=== PATIENT | female | born 1945 | race Caucasian/White ===

== ENCOUNTER 2019-08-31 08:40 | Outpatient (CLI) | payer OTHER, SELFPAY ==
[2019-08-31 09:23] LABS: Cholesterol 216 mg/dL (0-200); HDL Direct 47 mg/dL; Triglycerides 95 mg/dL (<150)
[2019-08-31 09:28] LABS: Blood Urea Nitrogen 24 mg/dL (7-17); Calcium 9.2 mg/dL (8.4-10.2); Carbon Dioxide 27 mmol/L (22-30); Chloride 106 mmol/L (98-107); Estimated Glomerular Filt Rate > 60; Glucose 107 mg/dL (65-105); Potassium 4.3 mmol/L (3.4-5.0); Sodium 140 mmol/L (137-145)
[2019-08-31 09:35] LABS: LDL Cholesterol Direct 129 mg/dL
[2019-08-31 10:54] LABS: Vitamin D 25 Hydroxy 28.6 ng/mL
== END 2019-08-31 08:41 | disposition home or self-care (01) ==
PROVIDERS: PCP Internal Medicine; Visit Provider Internal Medicine
DX: E55.9 Vitamin D deficiency, unspecified (principal); I10 Essential (primary) hypertension; E78.5 Hyperlipidemia, unspecified
CPT/HCPCS: 36415; 80048; 80061; 82306

== ENCOUNTER 2019-10-27 14:17 | Outpatient (CLI) | payer OTHER, SELFPAY ==
--- NOTE | ~2019-10-27 | US_ITS ---
EXAMINATION: US arterial ankle brachial ind EXAM DATE: 10/27/2019 15:34 INDICATION: Peripheral vascular disease. TECHNIQUE: Segmental pressures and plethysmographic and Doppler waveforms of the brachial and lower e xtremity arteries were obtained. There is no prior study for comparison. FINDINGS: Right and left brachial artery pressures of 140 mm Hg and 146 mm Hg, respectively, are concordant (no rmal difference <= 30 mmHg). RIGHT LEG: The ankle-brachial index (POLI) is 1.15 (normal >= 0.9-1). The great toe-brachial index (TBI) is 0.91 (normal >= 0.65). The lower extremity ratios, segmental pressure gradients as follows; Dorsalis pedis: 1.15 (168 mmHg). Posterior tibial: 1.03 (150 mmHg). (Normal gradients <= 20-30 mmHg between adjacent levels on the same leg or the same levels on the two legs). Arterial waveforms are biphasic. LEFT LEG: The ankle-brachial index (POLI) is 1.14 (normal >= 0.9-1). The great toe-brachial index (TBI) is 0.95 (normal >= 0.65). The lower extremity ratios, segmental pressure gradients as follows; Dorsalis pedis: 1.14 (167 mmHg). Posterior tibial: 1.09 (159 mmHg). (Normal gradients <= 20-30 mmHg between adjacent levels on the same leg or the same levels on the two legs). Arterial waveforms are biphasic. IMPRESSION: 1. Right ankle-brachial index 1.15. 2. Left ankle-brachial index 1.14. 3. Segmental pressures as above. Reviewed, dictated and finalized at location A.
== END 2019-10-27 14:18 | disposition home or self-care (01) ==
LOC: ANHIMG 14:18
PROVIDERS: PCP Internal Medicine; Visit Provider Nurse Practitioner
DX: I73.9 Peripheral vascular disease, unspecified (principal)
CPT/HCPCS: 93922

== ENCOUNTER 2019-10-28 12:16 | Outpatient (CLI) | payer OTHER, SELFPAY ==
--- NOTE | ~2019-10-28 | XR_ITS ---
. EXAMINATION: XR lg joint inject/asp w image DATE: 10/28/2019 13:28 INDICATION: Right hip pain TECHNIQUE: A time-out was performed to verify the patient's name, date of , and procedure to b e performed. The procedure including the risks, benefits, and alternatives was discussed with the pat ient. Risks discussed included bleeding and infection. The patient understood the risks and agreed to proceed. The skin overlying the right hip joint was prepped and draped in usual sterile fashion. A nesthetic was administered with 1% lidocaine subcutaneously. A 22 G needle was advanced under fluoro scopic guidance into the joint. Injection of 0.6 mL of Omnipaque 240 confirmed intra-articular posit ion of the needle. Subsequently, injectate consisting of 4.5 mm of a 2:1 mixture of 0.25% Sensorcain e: 10 mg/mL Kenalog for a total dosage of 15 mg Kenalog was instilled. Washout of contrast was seen c onfirming intra-articular administration. The needle was removed and the entry site was cleaned and d ressed. There were no immediate complications. Fluoroscopy exposure time was 0.1 minutes. The total number of images was 2. FINDINGS: Real-time fluoroscopy demonstrates the needle in the right hip joint. Patient's pain prior to procedure:08/27. Patient's pain following the procedure: 06/27. IMPRESSION: 1. Right hip joint injection of local anesthetic and steroid with decrease in the patient's presentin g pain. Reviewed, dictated and finalized at location A. IMPRESSION: 1. Right hip joint injection of local anesthetic and steroid with decrease in t he patient's presenting pain.
== END 2019-10-28 12:17 | disposition home or self-care (01) ==
PROVIDERS: PCP Internal Medicine; Visit Provider Orthopaedic Surgery
DX: M25.559 Pain in unspecified hip (principal)
CPT/HCPCS: 20610; 77002; J3301; Q9966

== ENCOUNTER 2019-11-11 14:58 | Outpatient (CLI) | payer OTHER, SELFPAY ==
--- NOTE | ~2019-11-11 | US_ITS ---
EXAMINATION: US venous doppler LE RT EXAM DATE: 11/11/2019 15:52 INDICATION: Right leg pain. TECHNIQUE: Multiple grayscale, color flow and Doppler images of the right lower extremity deep venous system were obtained and reviewed. There is no prior study for comparison. FINDINGS: The right common femoral, femoral and profunda veins demonstrate normal color flow, respira tory variation, augmentation and compressibility. Compressibility, color flow confirmed within the r ight popliteal, posterior tibial, peroneal, and greater saphenous veins. IMPRESSION: 1. No right lower extremity deep venous thrombosis. Reviewed, dictated and finalized at location B.
== END 2019-11-11 14:59 | disposition home or self-care (01) ==
PROVIDERS: PCP Internal Medicine; Visit Provider Nurse Practitioner
DX: M79.661 Pain in right lower leg (principal)
CPT/HCPCS: 93971

== ENCOUNTER 2020-08-18 08:51 | Outpatient (CLI) | payer OTHER, SELFPAY ==
[2020-08-18 10:00] LABS: Alanine Aminotransferase 16 U/L (4-35); Albumin Level 4.3 g/dL (3.5-5.1); Alkaline Phosphatase 94 U/L (38-126); Anion Gap 9 mmol/L (8-16); Aspartate Amino Transferase 26 U/L (14-36); Bilirubin,Total 0.3 mg/dL (0.2-1.3); Blood Urea Nitrogen 21 mg/dL (7-17); Calcium 9.6 mg/dL (8.4-10.2); Carbon Dioxide 26 mmol/L (22-30); Chloride 109 mmol/L (98-107); Cholesterol 222 mg/dL (0-200); Estimated Glomerular Filt Rate > 60; Glucose 102 mg/dL (65-105); HDL Direct 57 mg/dL; Potassium 4.5 mmol/L (3.4-5.0); Sodium 144 mmol/L (137-145); Triglycerides 100 mg/dL (<150)
[2020-08-18 10:05] LABS: Hemoglobin A1C 5.8 % (<5.7)
[2020-08-18 10:11] LABS: LDL Cholesterol Direct 117 mg/dL
[2020-08-18 10:37] LABS: Vitamin D 25 Hydroxy 36.8 ng/mL
== END 2020-08-18 08:52 | disposition home or self-care (01) ==
PROVIDERS: PCP Internal Medicine; Visit Provider Nurse Practitioner
DX: E78.5 Hyperlipidemia, unspecified (principal); R73.02 Impaired glucose tolerance (oral); E55.9 Vitamin D deficiency, unspecified
CPT/HCPCS: 36415; 80053; 80061; 82306; 83036

== ENCOUNTER 2020-12-12 10:50 | Outpatient (RCR) | payer OTHER, SELFPAY ==
--- NOTE | 2020-12-12 11:27 | PTOPEVAL ---
PHYSICAL THERAPY EVALUATION AND DISCHARGE Thank you for referring Nallely Jensen to [facility].? Nallely participated in gait training with a straight cane. No further care plan needed. Please review, sign, date and return this plan of care SHON. I agree with and certify that the following plan of care is medically necessary. Referring Physician Date Attending Provider: Oswald Doherty MD Evaluation Problem Diagnosis gait assessment with cane Subjective Information states she is going to be Query Text:As Reported By Patient/ having hip surgery on the Family right, hip replacement yet to be scheduled. Dr. Doherty would like her to be trained in using a cane appropriately. Self Report Pain Assessment Right Hip(s) Reported Pain Level 3 Pain Frequency Chronic Pain Score Pain Score 3: Self Report Interventions Used Interventions Used By Clinicians Walking Gait Assessment Gait Assessment Ambulation Assistive Devices Cane Ambulation Ability Independent Additional Ambulation Comments states that she feels like she can walk sohrt distances but avoids long distances. States that when she goes to the store she leans on the cart to assist. Gait Pattern Assessment Gait Pattern Antalgic Gait Other Gait Observations decreased hip extension in gait - patient notes that there is a pulling in the front of the hip when walking; Rehab Teaching Rehab Teaching Teaching Topic Rehab Teaching Topic Components Home Program,Transfer/Mobility Training As Pertains To Body Mechanics,Safety, Technique Recipient Patient Learning Preferences Demonstration,Discussion Barriers to Learning None Readiness to Learn Excellent Response Returns Demonstration, Verbalizes Understanding Method Demonstration,Discussion,One- On-One Instruction Additional Rehab Teaching Comments gait training with cane PT Clinical Summary Nallely is a 75 yo female scheduled to have a total hip arthroplasty in the coming weeks. She required education/ training for using a cane to assist with mobility and
== END 2020-12-12 15:37 | disposition home or self-care (01) ==
LOC: ANHPT 10:50
PROVIDERS: PCP Internal Medicine; Visit Provider Orthopaedic Surgery
DX: M16.11 Unilateral primary osteoarthritis, right hip (principal)
CPT/HCPCS: 97161

== ENCOUNTER 2021-01-17 11:59 | Outpatient (CLI) | payer OTHER, SELFPAY ==
[2021-01-17 13:19] LABS: Basophils Absolute Auto 0.1 K/mm3 (0.0-0.1); Eosinophils Absolute Auto 0.1 K/mm3 (0-0.3); Eosinophils Percent Auto 2.2 % (0-4.4); Hematocrit 43.5 % (37.0-47.0); Immature Granulocyte Absolute 0.01 K/mm3 (0.00-0.031); Immature Granulocyte Percent A 0.2 % (0-0.5); Lymphocytes Absolute Auto 1.44 K/mm3 (0.9-3.2); Lymphocytes Percent Auto 24.9 % (18.3-44.2); Mean Corpuscular HGB Conc 32.2 g/dl (32-36); Mean Corpuscular Hemoglobin 28.7 pg (26-34); Mean Corpuscular Volume 89.1 fl (80-100); Monocytes Absolute Auto 0.4 K/mm3 (0.1-0.6); Monocytes Percent Auto 7.6 % (2.6-8.5); Neutrophils Absolute Auto 3.7 K/mm3 (1.3-6.7); Neutrophils Percent Auto 64.1 % (45.5-73.1); Platelet Count Result 295 k/mm3 (150-375); Red Blood Count 4.88 M/mm3 (4.2-5.4); White Blood Count 5.8 K/mm3 (4.5-10.0)
[2021-01-17 13:27] LABS: Hemoglobin A1C 5.4 % (<5.7)
[2021-01-17 13:28] LABS: Urine Cotinine NEGATIVE
[2021-01-17 13:32] LABS: Albumin Level 4.9 g/dL (3.5-5.1); Anion Gap 7 mmol/L (8-16); Blood Urea Nitrogen 19 mg/dL (7-17); Calcium 10.9 mg/dL (8.4-10.2); Carbon Dioxide 31 mmol/L (22-30); Chloride 99 mmol/L (98-107); Estimated Glomerular Filt Rate > 60; Glucose 106 mg/dL (65-110); Sodium 137 mmol/L (137-145)
== END 2021-01-17 12:00 | disposition home or self-care (01) ==
LOC: ANHSURGERY 12:02
PROVIDERS: PCP Internal Medicine; Visit Provider Orthopaedic Surgery
DX: Z01.812 Encounter for preprocedural laboratory examination (principal); M16.11 Unilateral primary osteoarthritis, right hip; Z51.81 Encounter for therapeutic drug level monitoring; Z79.899 Other long term (current) drug therapy
CPT/HCPCS: 80048; 80307; 82040; 83036; 85025; 86850; 86900; 86901; 87070; 87147; 87181; 87186

== ENCOUNTER 2021-01-30 02:21 | Day surgery (SDC) | payer OTHER, SELFPAY ==
[2021-01-17 12:16] VITALS: BP 171/79; RESP 16; TEMP 36.6; O2SAT 100; BMI 28.0
--- NOTE | 2021-01-17 12:30 | PC.NURSE ---
Report to the Outpatient Waiting Room, entrance under the green pavilion located off [facility], at time __6:00AM on date __01/30/21____. OR Time: __7:30AM . - You and your visitor will be asked a series of questions to screen for COVID 19 for your protection. - A mask is required within the hospital. - Only one visitor is allowed at this time. Patient visitors will be guided where to wait when not with patient. Preoperative COVID Testing Requirements: No COVID Test needed if: (proof is required; if not received patient will have Rapid Test prior to entry) - Patient has received COVID Vaccine at least 14 days prior to procedure date or - Patient has positive COVID test result within last 90 days of surgery date. COVID Test needed if above criteria is not met If not COVID vaccinated a COVID test must be conducted within 72 hours of surgery and patient is asked to isolate self from time of testing until procedure. You will go to the [facility] for your COVID testing. The [facility] site is located at the corner of [address] [facility]. You will only be called if COVID results are positive and your surgeon may reschedule your elective surgery date. Patients may have clear liquids (water, carbonated beverages, clear teas, apple juice) until 3 hours prior to surgery with a maximum of 20 ounces. - No food from midnight until time of surgery - Infants may have breast milk until 4 hours before surgery, infant formula 6 hours prior to surgery. - Children will be allowed to drink immediately following surgery. If applicable, please bring a bottle or sippy cup to assist with drinking. Juice, water, soda, and popsicles are readily available. For infants on formula, please bring formula the day of surgery. Pacifiers are allowed. Take the following medications with a SIP of water the morning of surgery: ____NONE Medications to discontinue per physician HOLD ALL VITAMINS/SUPPLEMENTS 3 DAYS PRE-OP, OK TO CONTINUE ASPIRIN 81 MG Date to take last dose 01/26/21 Please no make-up, nail mauritian, hairspray, perfume, deodorant, or body powder the day of surgery. No jewelry (including any body piercings) or valuables the day of surgery, leave them at home. Please take a shower or bath the night before, or the morning of, surgery with an antibacterial soap. Wear comfortable, loose fitting clothing. Children are encouraged to wear pajamas. - Jewelry must be removed prior to entering the operating room. Rings and piercings that are not removed may be cut off. - The hospital will not accept responsibility for valuables. - Please leave all valuables, including medications, at home the day of surgery. If you are going home after surgery, a licensed cdl a driver must drive you home. - NO public transportation without another adult. - We recommend that an adult stay with you for 24 hours following discharge. - We also recommend that you do not drive, make important decision, drink alcoholic beverages, or take any drugs that were not prescribed by your health care provider for at least 24 hours after your discharge time. For Pediatric surgeries, we recommend two adults accompany the child home (only one inside the building at this time). Follow any additional instructions given to you from your surgeon. Telephone instructions given to ___PATIENT and asked if any additional questions and then verbalized understanding. Patient advised to call surgeon office or pre surgery nurse liaison [phone] if any additional questions.
--- NOTE | 2021-01-25 12:34 | PM.IMHP ---
H&P: HPI History of Present Illness Date/Time: 01/25/21 12:34 75-year-old female patient of Dr. Narayanan who presents today for a right anterior total hip arthroplasty. She has been having pain in this hip for approximately 3 years. Progressively worsening. Most the pain is in the groin and anterior lateral hip. She did have a fluoroscopic guided injection in the hip about a year ago which had mild improvement of her symptoms. She avoids anti-inflammatory medications because she is afraid of having kidney issues. She does not have a diagnosis of chronic kidney disease. She does use Tylenol. 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 Chief Complaint: Right hip DJD Review of Systems Review of Systems: All systems reviewed & are unremarkable except as noted in HPI and below PMFSH Past Medical History Medical History Pain in right lower leg Surgical History Surgical History History of bilateral mastectomy History of hysterectomy Family History Family History Father Hypertension Cerebrovascular accident Colon polyp Patient's father is Mother Hypertension Patient's mother is in good health Grandparent Family history of throat cancer Sibling Family history of hepatitis Family history of heart disease in male family member before age 55 Family history of cardiovascular disease Social History Social History Smoking status: Never smoker Second hand tobacco smoke exposure: No Alcohol intake: former 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 Spiritual care concerns: No Meds Home Medications and Allergies Home Medications Medication Instructions Recorded Confirmed Type cholecalciferol (vitamin D3) 50 50 mcg PO DAILY #90 tablet 09/22/19 01/17/21 Rx mcg (2,000 unit) tablet aspirin [Aspir-81] 81 mg PO DAILY 01/17/21 01/17/21 History Allergies Allergy/AdvReac Type Severity Reaction Status Date / Time adhesive tape Allergy BLISTERS Verified 01/17/21 12:13 topiramate AdvReac Unknown Nausea and Verified 01/17/21 12:11 Vomiting Exam Narrative: 75-year-old female alert pleasant. She is 5 ft 5 and 166 lb. Her right hip has range of motion from 20-90 degrees. Her right knee extends fully. Internal rotation is 0 external rotation to 20. Stinchfield maneuver causes some pain lateral hip with some mild weakness. She has normal abduction strength in lateral position and minimal tenderness over the greater trochanter. Normal sensation in right lower extremity. She does have varicose veins in both lower extremities without edema. 2+ posterior tibial artery pulse. Resp: Auscultation: clear to auscultation bilaterally Cardio: Rate: regular rate Rhythm: regular rhythm Assessment and Plan Additional Plan 75-year-old female who has advanced arthritis of the right hip with continued symptoms. Again at this point she would like to proceed with total hip arthroplasty. Surgical procedure as well as the risks and complications were discussed in detail and all questions were answered and we will proceed. She will avoid anti-inflammatories or any aspirin products 1 week prior to surgery. She will see her primary care doctor for pre-surgical clearance. We did check a vitamin D level on her and was 36.8. Her last bone density showed osteopenia from 2019. her nasal swab and did grow heavy growth of oxacillin sensitive Staph aureus and she has been jennieal and I Olu as of 01 24. Chem panel was all within normal limits creatinine is 0.80. Hemoglobin 14.0 a
--- NOTE | 2021-01-27 14:29 | WPDANESEPPF ---
Anes - Initial Pre Proc Eval Procedure: Operation Date: 01/30/21 07:30 Proposed Procedures p Right Total Hip Arthroplasty Anterior Approach - Oswald Doherty MD Date/Time: 01/27/21 14:29 Surgeon: Oswald Doherty MD Pre Op Diagnosis: OA right hip Patient Data Age: 75 Gender: F Height: 1.65 m Weight: 76.4 kg Last Vital Signs Temp 97.9 F 01/17/21 12:16 Resp 16 01/17/21 12:16 BP 171/79 H 01/17/21 12:16 Pulse Ox 100 01/17/21 12:16 Allergies Allergy/AdvReac Type Severity Reaction Status Date / Time adhesive tape Allergy BLISTERS Verified 01/30/21 07:13 topiramate AdvReac Unknown Nausea and Verified 01/30/21 07:13 Vomiting Home Medications Medication Instructions Recorded Confirmed Type cholecalciferol (vitamin D3) 50 50 mcg PO DAILY #90 tablet 09/22/19 01/30/21 Rx mcg (2,000 unit) tablet aspirin [Aspir-81] 81 mg PO DAILY 01/17/21 01/30/21 History Patient hx anesthesia problems: none Family hx anesthesia problems: none Results Review: All pre-operative results and documents have been reviewed as part of the pre-operative evaluation. [facility] Past Medical History Medical History (Updated 01/27/21 @ 14:29 by Reji Decker MD) Essential (primary) hypertension Hyperlipidemia, unspecified Pain in right lower leg Surgical History Surgical History History of bilateral mastectomy History of hysterectomy Family History Family History Father Hypertension Cerebrovascular accident Colon polyp Patient's father is Mother Hypertension Patient's mother is in good health Grandparent Family history of throat cancer Sibling Family history of hepatitis Family history of heart disease in male family member before age 55 Family history of cardiovascular disease Social History Social History Smoking status: Never smoker Second hand tobacco smoke exposure: No Alcohol intake: former 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 Spiritual care concerns: No Anes - Eval Final PreProcedure Day of Procedure 01/27/21 14:29 Patient weight: overweight Heart: regular rate and rhythm Lungs: clear to auscultation Airway: Mallampati scale class II Neurological: alert and oriented Last oral intake: >/= 8 hours ASA classification: III Emergent: no Anesthetic plan: proceed Anesthesia type and monitoring: general ETT and standard monitoring Results Review: All pre-operative results and documents have been reviewed as part of the pre-operative evaluation. Informed Consent: The patient's anesthetic plan and its attendant risks and benefits were discussed with the patient/family/POA. Questions were solicited and answers provided to the satisfaction of the patient/family/POA.
[2021-01-30] VITALS (15 sets, daily range): BP systolic 104–151; BP diastolic 44–74; PULSE 55–69; RESP 12–20; TEMP 35.7–36.6; O2SAT 94–100
--- NOTE | ~2021-01-30 | XR_ITS ---
EXAMINATION: XR hip RT 1V w AP pelvis DATE: 01/30/2021 11:19 INDICATION: Postoperative evaluation following right total hip arthroplasty TECHNIQUE: Anteroposterior and lateral views of the right hip were obtained. COMPARISON: Right hip radiographs dated 01/23/2018 FINDINGS: New noncemented right total hip arthroplasty which appears well seated in near anatomic alignment. Th e acetabular component is affixed with a single screw. No fracture. Surgical drain and expected subcu taneous gas in the postoperative bed. Left hip joint space is normal. Mild bilateral sacroiliac osteo arthritis. IMPRESSION: 1. Right total hip arthroplasty, negative for postoperative purposes. Reviewed, dictated and finalized at location A. [facility]
--- NOTE | ~2021-01-30 | XR_ITS ---
EXAMINATION: XR surgery orthopedic EXAM DATE: 01/30/2021 10:52 INDICATION: Right hip replacement anterior approach. TECHNIQUE: Fluoroscopy used during XR surgery orthopedic performed by Dr. Oswald Doherty MD. Radi ologist was not present for the imaging or procedure. Total fluoroscopic time of 45 seconds. The DA P for this procedure was 0.25 mGym2. A total of 3 images sent to PACS from the exam. FINDINGS: Frontal images demonstrate right hip replacement hardware overlying expected position. Co rrelate with procedure note. IMPRESSION: Fluoroscopy used during right hip replacement. Reviewed, dictated and finalized at location B. ING MACHINE OPERATOR
[2021-01-30] MEDS: ACETAMINOPHEN 500 MG TABLET 1000 MG PO ×3 (06:42→18:42)
[2021-01-30] MEDS: LACTATED RINGERS 1,000 ML 30 ML IV CONT ×2 (06:45→11:26)
[2021-01-30] MEDS: TRANEXAMIC ACID 1,000MG/ISO100 1,000 MG/100 ML BAG 200 MG IVPB (07:00)
--- NOTE | 2021-01-30 07:17 | WPDHPUPDATE1 ---
History and Physical Update Update Date/Time: 01/30/21 07:17 History and Physical has been reviewed, including an updated exam of the patient. There are NO changes in the patient's condition. Risks, benefits, and alternatives have been discussed and questions answered. Patient agrees to proceed with procedure.
[2021-01-30] MEDS: ceFAZolin 2 GM/D5W 50 ML 2 GM/50 ML BAG IVPB (07:34)
[2021-01-30] MEDS: ceFAZolin SODIUM 1 GM VIAL 3 GM IRRIGATION (08:26)
[2021-01-30] MEDS: ceFAZolin SODIUM 1 GM VIAL IV PUSH (10:44)
[2021-01-30] MEDS: TRANEXAMIC ACID 1,000 MG/10 ML AMPUL 1000 MG IV PUSH (10:46)
--- NOTE | 2021-01-30 11:04 | W.PM.PROC2 ---
Procedure Note - Detailed Date of Procedure 01/30/21 Pre-op Diagnosis OA right hip Post-op Diagnosis same Procedure Performed Direct anterior approach right total hip arthroplasty Surgeon Oswald Doherty MD [employer]reza Anesthesia general Description of Procedure Patient was brought to the operating room and general anesthesia was administered. The feet were padded with soft roll and the boots applied she was transferred to the OSI table and the right hip prepped and draped usual fashion. She received 2 g of Ancef weight based vancomycin 1 g of tranexamic acid preoperatively. A 10 cm longitudinal incision was made starting 3 cm lateral to the ASIS. Dissection was carried down to the fascia over the tensor fascia ranjeet which was longitudinally incised. This was elevated off the anterior 1/2 the TFL muscle. The interval between the TFL and rectus femoris was developed and crossing branches of ascending lateral femoral circumflex vessels divided. Ileal capsule layers elevated off the anterior capsule and the hip abducted and internally rotated and the gluteus minimus elevated off the lateral capsule. Standard capsulotomy was carried out. Sineff femoral neck osteotomy was made according to preoperative templating. The femoral head was removed and measured about 48 mm in its peripheral diameter. The femoral head was somewhat mushroom shaped and there was complete eburnation of the superior articular surface. The acetabulum was exposed. There was relative deficiency of the posterior superior acetabular rim but the rest of the rim was intact. The femur was externally rotated and extended and the interval between conjoined tendon and piriformis was incised which allowed the piriformis to flipped posteriorly. Conjoined tendon did not have to be recessed other than the interval release. With the leg back in the horizontal position external rotation and traction the acetabulum was exposed labrum excised. Articular cartilage curetted and we medialized to the medial wall with a 44 mm Reamer to remove the medial acetabular osteophyte and we reamed up to a size 49. The reamers were new and sharp. The 49 Reamer reach the periphery and the 49 trial sat properly with a light press fit. The 50 mm pinnacle cup was chosen and impacted at 40? of abduction under fluoroscopic guidance anteversion such that the anterior rim was flush with the anterior rim of the acetabulum and this left the posterior superior rim about 5 or 6 mm proud of the acetabulum in the area where there was some deficiency of the posterior superior acetabular rim. An excellent Press-Fit was achieved and full seating was accomplished. A single screw was placed into the ilium which also obtained excellent purchase. She did have history of osteoporosis and the cancellous bone was a little bit softer than average. The acetabular liner 32 inner diameter placed inferior osteophyte removed. The femur was externally rotated extended and we broached up to a size 6. This was seated to the expected depth and we trialed with the +5 with a standard offset and +5 the hip was just a little bit loose with stability checking. We could see that the size 6 appeared slightly undersized in the femur as well. The right leg was a little bit long in this position. Therefore, we calcar planed and I assessed the rotation of the 6 which had just a little bit of torsional play. I countersunk the 6 an additional 2 mm and calcar planed and went up to a size 7 broach which gave solid fixation in the canal with no play. We trialed with the high offset neck and the +1 head and this gave us equal leg lengths and normal stability and offset appeared equal as well. This was the exact size of the femur and neck that templated on the x-ray of her left hip. Calcar planing was finalized with the precision saw. The size 7 high offset Actis stem was seated without difficulty with an excellent press fit. We trialed the +1 head and h
[2021-01-30] MEDS: fentaNYL CITRATE INJ (*CRX) 100 MCG/2 ML VIAL 25 MCG IV PUSH ×2 (12:39→12:41)
[2021-01-30] MEDS: oxyCODONE HCL (*CRX) 5 MG TAB IR PO ×3 (14:02→20:02)
[2021-01-30] MEDS: SODIUM CHLORIDE 0.9% IV 1,000 ML 125 ML IV CONT (14:05)
[2021-01-30] MEDS: WATER IVPB (17:24)
[2021-01-30] MEDS: VANCOMYCIN HCL IVPB (17:24)
[2021-01-30] MEDS: DEXTROSE 5% IVPB (17:24)
[2021-01-30] MEDS: SENNA/DOCUSATE SODIUM TABLET 2 TAB PO (17:34)
[2021-01-30] MEDS: FAMOTIDINE 20 MG TABLET PO (20:02)
[2021-01-31 00:18] VITALS: BP 97/52; PULSE 61; RESP 18; TEMP 36.3; O2SAT 98
[2021-01-31] MEDS: ACETAMINOPHEN 500 MG TABLET 1000 MG PO ×2 (00:53→06:33)
[2021-01-31] MEDS: oxyCODONE HCL (*CRX) 5 MG TAB IR PO ×3 (00:53→09:10)
[2021-01-31 03:19] VITALS: BP 97/45; PULSE 58; RESP 20; TEMP 36; O2SAT 99
[2021-01-31] MEDS: WATER IVPB (05:21)
[2021-01-31] MEDS: VANCOMYCIN HCL IVPB (05:21)
[2021-01-31] MEDS: DEXTROSE 5% IVPB (05:21)
[2021-01-31 05:28] LABS: Basophils Percent Auto 0.3 % (0.2-1.2); Hemoglobin 9.5 g/dL (12.0-15.0); Immature Granulocyte Absolute 0.06 K/mm3 (0.00-0.031); Immature Granulocyte Percent A 0.5 % (0-0.5); Lymphocytes Absolute Auto 1.02 K/mm3 (0.9-3.2); Lymphocytes Percent Auto 7.9 % (18.3-44.2); Mean Corpuscular HGB Conc 31.7 g/dl (32-36); Mean Corpuscular Hemoglobin 28.7 pg (26-34); Mean Corpuscular Volume 90.6 fl (80-100); Mean Platelet Volume 9.2 fl (7.4-10.4); Monocytes Absolute Auto 1.2 K/mm3 (0.1-0.6); Neutrophils Absolute Auto 10.6 K/mm3 (1.3-6.7); Neutrophils Percent Auto 82.3 % (45.5-73.1); Platelet Count Result 192 k/mm3 (150-375); Red Blood Count 3.31 M/mm3 (4.2-5.4); White Blood Count 12.9 K/mm3 (4.5-10.0)
[2021-01-31 05:55] LABS: Anion Gap 8 mmol/L (8-16); Blood Urea Nitrogen 14 mg/dL (7-17); Calcium 8.6 mg/dL (8.4-10.2); Carbon Dioxide 25 mmol/L (22-30); Chloride 99 mmol/L (98-107); Estimated CRCL calculation 56 ml/min; Estimated Glomerular Filt Rate > 60; Glucose 132 mg/dL (65-110); Potassium 4.2 mmol/L (3.4-5.0); Sodium 132 mmol/L (137-145)
--- NOTE | 2021-01-31 06:20 | PM.PNORT ---
Subjective Subjective Date/Time Seen: 01/31/21 06:20 Postop day 1 patient is alert pleasant. She is afebrile vital signs are stable. Dressing is dry. Her drain will be removed this morning. She was up walking yesterday with physical therapy comfortable. Pain is well controlled. Morning CBC is not done yet. Chem panel is all normal. Neurovascularly she is intact. Overall patient is doing very well. We will plan to have patient work with physical therapy this morning if she continues do well plan on discharging home later this morning. Objective Data Vital Signs Vital Signs: Vital Signs - 24 hr 01/30/21 07:00 01/30/21 11:26 01/30/21 11:30 Temperature 35.7 C L 36.6 C Pulse Rate 69 69 62 Respiratory Rate 16 14 12 Blood Pressure 149/74 H 138/63 128/62 Pulse Oximetry 100 100 100 01/30/21 11:45 01/30/21 12:00 01/30/21 12:15 Temperature Pulse Rate 60 61 62 Respiratory Rate 12 12 15 Blood Pressure 151/73 H 149/70 H 148/65 H Pulse Oximetry 95 94 98 01/30/21 12:30 01/30/21 12:45 01/30/21 13:00 Temperature 36.4 C Pulse Rate 55 L 56 L 66 Respiratory Rate 20 15 16 Blood Pressure 143/68 H 139/56 L 104/51 L Pulse Oximetry 94 95 97 01/30/21 13:15 01/30/21 13:45 01/30/21 14:45 Temperature 36.4 C 36.6 C 36.4 C Pulse Rate 63 64 60 Respiratory Rate 16 16 16 Blood Pressure 118/54 L 130/52 L 120/47 L Pulse Oximetry 100 98 96 01/30/21 18:32 01/30/21 21:01 01/30/21 21:05 Temperature 36.5 C 36.6 C Pulse Rate 60 59 L 59 L Respiratory Rate 16 20 20 Blood Pressure 122/44 L 113/53 L Pulse Oximetry 98 99 99 01/31/21 00:18 01/31/21 03:19 Temperature 36.3 C L 36.0 C L Pulse Rate 61 58 L Respiratory Rate 18 20 Blood Pressure 97/52 L 97/45 L Pulse Oximetry 98 99 Intake/Output Intake/Output: Intake & Output 01/28/21 01/29/21 01/30/21 12/14/21 23:59 23:59 23:59 23:59 Intake Total 1880 Balance 1880 Meds/Results Medications: Active Medications Generic Name Dose Route Start Last Admin Trade Name Freq PRN Reason Stop Dose Admin Acetaminophen 1,000 mg 01/30/21 19:00 01/31/21 00:53 Acetaminophen 500 Mg Tablet PO 1,000 mg Q6H HAO Administration Al Hydrox/Mg Hydrox/Simethicone 30 ml 01/30/21 12:47 Mag Hydrox/Al Hydrox/Simeth 30 Ml Udc PO Q6H PRN Indigestion Apixaban 2.5 mg 01/31/21 09:00 Apixaban 2.5 Mg Tablet PO 03/06/21 21:01 Q12HR HAO Celecoxib 100 mg 01/31/21 09:00 Celecoxib 100 Mg Capsule PO DAILY HAO Cephalexin HCl 500 mg 01/31/21 12:00 Cephalexin 500 Mg Capsule PO Q6HR HAO Famotidine 20 mg 01/30/21 21:00 01/30/21 20:02 Famotidine 20 Mg Tablet PO 20 mg Q12HR HAO Administration Hydroxyzine HCl 50 mg 01/30/21 12:47 Hydroxyzine Hcl 25 Mg Tablet PO Q4H PRN Itching Cefazolin Sodium 1 gm in 50 mls @ 100 mls/hr 01/30/21 15:00 01/30/21 23:40 Ancef 1 Gm/D5w 50 Ml Pm IVPB 01/31/21 07:29 Infused Q8H HAO Infusion Vancomycin HCl 1,000 mg/ 250 mls @ 250 mls/hr 01/30/21 18:00 01/31/21 05:21 Dextrose IVPB 01/31/21 06:59 250 mls/hr Q12H HAO Administration Morphine Sulfate 2 mg 01/30/21 12:47 Morphine Sulfate (*Crx) 2 Mg/Ml Inj IV PUSH Q3H PRN Pain Rated 7-10 Naloxone HCl 0.1 mg 01/30/21 12:47 Naloxone Hcl 0.4 Mg/Ml Vial IV PUSH Q2M PRN Opiate Reversal Ondansetron HCl 4 mg 01/30/21 12:47 Ondansetron Inj 4 Mg/2 Ml Vial IV PUSH Q4H PRN Nausea And Vomiting Oxycodone HCl 5 mg 12/13/21 12:47 Oxycodone Hcl (*Crx) 5 Mg Tab Ir PO Q4H PRN Pain Rated 4-6 Oxycodone HCl 5 mg 01/30/21 13:00 01/31/21 05:21 Oxycodone Hcl (*Crx) 5 Mg Tab Ir PO 5 mg Q4HR HAO Administration Polyethylene Glycol 17 gm 01/31/21 09:00 Polyethylene Glycol 3350 17 Gm Powd.Pack PO QAM HAO Senna/Docusate Sodium 2 tab 01/30/21 17:00 01/30/21 17:34 Senna/Docusate Sodium Tablet PO 2 tab BID HAO Administration Radiology Resu
--- NOTE | 2021-01-31 06:25 | PM.DS ---
DS: Admitting Diagnosis Discharge Date 01/31 Admitting Diagnosis right hip DJD DS: Summary Hospital Course Hospital Course: stable Time Spent with Patient Time attestation: Total time spent providing and/or coordinating discharge services: 75-year-old female who underwent right anterior total hip arthroplasty on 01/30. Underwent procedure without complications. Postoperatively she has been afebrile vital signs was stable. Neurovascularly she is intact. Her wound is dry. She is weight-bearing as tolerated with the walker for the 1st month. Her bones were just a little bit soft at times surgeries or heavy use of walker for a month. She is on Eliquis for DVT prophylaxis. 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 Pain is well controlled with scheduled Tylenol as well as oxycodone 5 mg. Patient will be sent home with Senokot and MiraLax for constipation. Patient was advised to keep leg elevated at home but may be up walking about as tolerated. Morning CBC was not done at the time of this dictation, we will check on this before she leaves. Patient was advised questions or concerns she should call the office otherwise we will see her at her appointment dates. DS: Data Data Completed and Pending Labs on day of discharge: Labs from last 24 hours 01/31/21 01/31/21 05:06 05:06 WBC Pending RBC Pending Hgb Pending Hct Pending MCV Pending MCH Pending MCHC Pending RDW Pending Plt Count Pending MPV Pending Immature Gran % (Auto) Pending Neut % (Auto) Pending Lymph % (Auto) Pending [place] % (Auto) Pending Eos % (Auto) Pending Baso % (Auto) Pending Lymph # (Auto) Pending [place] # (Auto) Pending Eos # (Auto) Pending Baso # (Auto) Pending Abs Immat Gran (auto) Pending Absolute Neuts (auto) Pending Absolute Nucleated RBC Pending Nucleated RBC % Pending Sodium 132 L Potassium 4.2 Chloride 99 Carbon Dioxide 25 Anion Gap 8 BUN 14 D Creatinine 0.80 Estim Creat Clear Calc 56 Estimated GFR > 60 Glucose 132 H Calcium 8.6 Discharge Plan Discharge Patient Disposition: Home, Self-Care Discharge Instructions: OSWALD DOHERTY M.D [facility], [address] [address] POST-OPERATIVE DISCHARGE INSTRUCTIONS ANTERIOR TOTAL HIP ARTHROPLASTY 1. Move toes/feet up and down every hour while awake. 2. Be up walking every hour while awake. 3. Use cane in hand opposite of side of hip surgery or walker as comfort allows. Avoid sitting in a chair unless eating, receiving visitors or using the toilet. 4. When resting, lie on back with leg elevated above heart to minimize swelling. Significant swelling could indicate a blood clot and if this occurs, call the office (or go to the ER) to have a venous ultrasound performed. 5. Wound Care: Keep dry sponge on wound for 2 weeks. Use minimal tape. 6. May shower with dressing off. 7. Use walker for the 1st month, patient is full weight-bearing right lower extremity. Patient Instructions: Precautions after Total Joint Replacement Surgery (DC), Joint Replacement Surgery (GEN), Anterior Hip Replacement (GEN) Follow-up/Referrals: Oswald Doherty MD [Physician] - Keep Reg. Scheduled Appt. Discharge Medications: New acetaminophen 500 mg Tablet 1,000 mg PO Q6H Qty: 90 RF: 0 Eliquis 2.5 mg Tablet 2.5 mg PO Q12HR Qty: 69 RF: 0 sennosides-docusate sodium [Senokot-S] 8.6-50 mg Tablet 2 tab-cap PO BID Qty: 60 RF: 0 cephalexin 500 mg Capsule 500 mg PO Q6HR Qty: 48 RF: 0 celecoxib [Celebrex] 100 mg Capsule 100 mg PO DAILY Qty: 10 RF: 0 polyethylene glycol 3350 [Miralax] 17 gram Powder In Packet 17 g PO QAM Qty: 30 RF: 0 oxycodone 5 mg Tablet 5 mg PO Q4HR Qty: 40 RF: 0 Continued cholecalciferol (vitamin D3) 50 mcg (2,000 unit) tablet 50 mcg
--- NOTE | 2021-01-31 07:30 | WPDANESPN ---
Anes - Prog Note Post-Op Date/Time: 01/31/21 07:30 Cardiovascular status: normal Respiratory status: normal Airway patency: baseline Mental status: baseline Post-Op hydration status: normal Vital Signs: Last Vital Signs Temp 36.0 C L 01/31/21 03:19 Pulse 58 L 01/31/21 03:19 Resp 20 01/31/21 03:19 BP 97/45 L 01/31/21 03:19 Pulse Ox 99 01/31/21 03:19 Pain Score (VAS): 0 I/O: Intake & Output 01/30/21 01/30/21 01/31/21 15:59 23:59 07:59 Intake Total 1100 780 Output Total 60 Balance 1100 780 -60 Laboratory Tests 01/31/21 05:06 01/31/21 05:06 01/31/21 01/31/21 05:06 05:06 WBC 12.9 H RBC 3.31 L Hgb 9.5 L D Hct 30.0 L MCV 90.6 MCH 28.7 MCHC 31.7 L RDW 14.0 Plt Count 192 MPV 9.2 Immature Gran % (Auto) 0.5 Neut % (Auto) 82.3 H Lymph % (Auto) 7.9 L [place] % (Auto) 9.0 H Eos % (Auto) 0.0 Baso % (Auto) 0.3 Lymph # (Auto) 1.02 [place] # (Auto) 1.2 H Eos # (Auto) 0.0 Baso # (Auto) 0.0 Abs Immat Gran (auto) 0.06 H Absolute Neuts (auto) 10.6 H Absolute Nucleated RBC 0.0 Nucleated RBC % 0.0 Sodium 132 L Potassium 4.2 Chloride 99 Carbon Dioxide 25 Anion Gap 8 BUN 14 D Creatinine 0.80 Estim Creat Clear Calc 56 Estimated GFR > 60 Glucose 132 H Calcium 8.6 Post-procedural complaints: none Patient Feedback: Patient satisfied with anesthetic care.
[2021-01-31] MEDS: CELECOXIB 100 MG CAPSULE PO (09:10)
[2021-01-31] MEDS: FAMOTIDINE 20 MG TABLET PO (09:10)
[2021-01-31] MEDS: polyethylene glycoL 3350 17 GM POWD.PACK PO (09:10)
[2021-01-31] MEDS: SENNA/DOCUSATE SODIUM TABLET 2 TAB PO (09:10)
[2021-01-31] MEDS: APIXABAN 2.5 MG TABLET PO (09:10)
== END 2021-01-31 10:30 | disposition home or self-care (01) ==
LOC: ANHSURGERY 06:23 → ANH2MED 12:56
PROVIDERS: Physician Assistant Surgical; PCP Internal Medicine; Visit Provider Orthopaedic Surgery
PROC: (CPT 27130; principal; 2021-01-30 07:30)
DX: M16.11 Unilateral primary osteoarthritis, right hip (principal)
CPT/HCPCS: 27130; 36415; 73501; 80048; 80307; 82040; 83036; 85025; 86850; 86900; 86901; 87070; 87147; 87181; 87186; 97110; 97116; 97161; 97165; 97530; 97535; A9270; C1776; J0171; J0690; J1100; J1170; J1885; J2250; J2270; J2405; J2704; J2795; J3010; J3370; J7030; J7060; J7120

== ENCOUNTER 2021-03-28 10:32 | Outpatient (CLI) | payer OTHER, SELFPAY ==
[2021-03-28 12:21] LABS: Alanine Aminotransferase 20 U/L (4-35); Albumin Level 4.6 g/dL (3.5-5.1); Alkaline Phosphatase 126 U/L (38-126); Anion Gap 9 mmol/L (8-16); Aspartate Amino Transferase 26 U/L (14-36); Bilirubin,Total 0.4 mg/dL (0.2-1.3); Blood Urea Nitrogen 21 mg/dL (7-17); Calcium 9.8 mg/dL (8.4-10.2); Carbon Dioxide 27 mmol/L (22-30); Chloride 104 mmol/L (98-107); Cholesterol 247 mg/dL (0-200); Estimated Glomerular Filt Rate > 60; Glucose 115 mg/dL (65-110); HDL Direct 55 mg/dL; Potassium 4.1 mmol/L (3.4-5.0); Sodium 140 mmol/L (137-145); Triglycerides 108 mg/dL (<150)
[2021-03-28 12:31] LABS: LDL Cholesterol Direct 143 mg/dL
[2021-03-28 12:49] LABS: Vitamin D 25 Hydroxy 46.4 ng/mL
== END 2021-03-28 10:33 | disposition home or self-care (01) ==
LOC: ANHLAB 10:35
PROVIDERS: PCP Internal Medicine; Visit Provider Nurse Practitioner
DX: E78.5 Hyperlipidemia, unspecified (principal); E55.9 Vitamin D deficiency, unspecified
CPT/HCPCS: 36415; 80053; 80061; 82306

== ENCOUNTER 2022-06-04 11:05 | Outpatient (CLI) | payer OTHER, SELFPAY ==
--- NOTE | ~2022-06-04 | XR_ITS ---
Left Shoulder Technique: AP and scapular Y views were obtained. Clinical History: Pain Findings: No fracture or dislocation is seen. Osseous alignment is anatomic. There is minimal spurrin g at the inferomedial humeral head. There is minimal AC joint degenerative change. Soft tissues are u nremarkable. Impression: Minimal degenerative changes, as above. Reviewed, dictated and finalized at location M. Impression: Minimal degenerative changes, as above.
== END 2022-06-04 11:06 | disposition home or self-care (01) ==
PROVIDERS: PCP Family Medicine; Visit Provider Family Medicine
DX: M25.512 Pain in left shoulder (principal)
CPT/HCPCS: 73030

== ENCOUNTER 2022-08-06 00:47 | Day surgery (SDC) | payer OTHER, SELFPAY ==
[2022-07-30 11:56] VITALS: BMI 24.9
[2022-08-06 08:16] VITALS: BP 137/65; PULSE 80; RESP 16; TEMP 36; O2SAT 100
--- NOTE | 2022-08-06 08:19 | SUR.PREOP ---
Patient clarified right hip replacement date to be 02/05/21 not 2021. Ampicillin order was cancelled.
[2022-08-06] MEDS: LACTATED RINGERS 1,000 ML 150 ML IV CONT (08:26)
--- NOTE | 2022-08-06 08:45 | PM.HPGS ---
History of Present Illness History of Present Illness Consent: Risks, benefits, and alternatives have been discussed and questions answered. Patient agrees to proceed with procedure. Chief complaint: neoplasm screening Narrative: Nallely Jensen is a 77 year old female Presents for screening colonoscopy. Patient's current weight appetite and bowel movements are normal. Patient denies abdominal pain. She has had no bleeding. Family history is significant both her brother and father have had colon polyps. Patient presents today for neoplasia screening. Review of Systems Review of Systems: Review of systems noncontributory. [facility] Past Medical History Medical History (Updated 08/06/22 @ 08:46 by Yannick Amaral MD) Anemia Essential (primary) hypertension Hyperlipidemia Hyperlipidemia, unspecified Left shoulder pain Osteoarthritis of right hip Pain in right lower leg Surgical History Surgical History History of bilateral mastectomy History of hysterectomy Family History Family History Father Hypertension Cerebrovascular accident Colon polyp Patient's father is Mother Hypertension Patient's mother is in good health Grandparent Family history of throat cancer Sibling Family history of hepatitis Family history of heart disease in male family member before age 55 Family history of cardiovascular disease Social History Social History Smoking status: Never smoker Second hand tobacco smoke exposure: No Alcohol intake: current Alcohol use details: 2 glasses wine on sundays Substance use: never Substance use type: does not use Lack of Transportation: No Lack of Food: Never True Current Housing: I Have Housing Concerned About Future Housing: No Difficulty Paying Gas/Electric Bills: No Difficulty Paying for Meds: No Currently Unemployed: No Education: High School Diploma/GED Difficulty w/ Childcare or Family Care: No Living arrangements: alone Additional living arrangements comments: S.O. Spiritual care concerns: No Meds Home Medications and Allergies Home Medications Medication Instructions Recorded Confirmed Type cholecalciferol (vitamin D3) 50 50 mcg PO DAILY #90 tabs 09/22/19 07/30/22 Rx mcg (2,000 unit) tablet Allergies Allergy/AdvReac Type Severity Reaction Status Date / Time adhesive tape Allergy BLISTERS Verified 08/06/22 08:12 topiramate AdvReac Unknown Nausea and Verified 08/06/22 08:12 Vomiting Vital Signs Vital Signs - 24 hr 08/06/22 08:16 Temperature 96.8 F L Pulse Rate 80 Respiratory Rate 16 Blood Pressure 137/65 Pulse Oximetry 100 Oxygen Delivery Room Air Exam Narrative: Physical exam reveals patient to be alert. Vital signs stable. HEENT exam is unremarkable. Patient is anicteric. Lungs are clear to auscultation and percussion. Heart is without murmur or extra sounds. Abdomen bowel sounds are present soft nontender with no organomegaly. Digital external rectal exam is normal. Assessment and Plan Assessment and plan (1) Family history of colonic polyps: Code(s): Z83.71 - Family history of colonic polyps Status: Acute Assessment and Plan: Patient's brother and father both have had colon polyps. Patient presents today for surveillance screening colonoscopy.
--- NOTE | 2022-08-06 09:22 | WPDANESEPPF ---
Anes - Initial Pre Proc Eval Procedure: Operation Date: 08/06/22 09:30 Proposed Procedures p Screening Colonoscopy - Yannick Amaral MD Date/Time: 08/06/22 09:22 Surgeon: Yannick Amaral MD Pre Op Diagnosis: neoplasm screening Patient Data Age: 77 Gender: F Height: 1.65 m Weight: 66.6 kg Last Vital Signs Temp 96.8 F L 08/06/22 08:16 Pulse 80 08/06/22 08:16 Resp 16 08/06/22 08:16 BP 137/65 08/06/22 08:16 Pulse Ox 100 08/06/22 08:16 O2 Del Method Room Air 08/06/22 08:16 Allergies Allergy/AdvReac Type Severity Reaction Status Date / Time adhesive tape Allergy BLISTERS Verified 08/06/22 08:12 topiramate AdvReac Unknown Nausea and Verified 08/06/22 08:12 Vomiting Home Medications Medication Instructions Recorded Confirmed Type cholecalciferol (vitamin D3) 50 50 mcg PO DAILY #90 tabs 09/22/19 07/30/22 Rx mcg (2,000 unit) tablet Patient hx anesthesia problems: none Family hx anesthesia problems: none Results Review: All pre-operative results and documents have been reviewed as part of the pre-operative evaluation. [facility] Past Medical History Medical History (Updated 08/06/22 @ 08:46 by Yannick Amaral MD) Anemia Essential (primary) hypertension Hyperlipidemia Hyperlipidemia, unspecified Left shoulder pain Osteoarthritis of right hip Pain in right lower leg Surgical History Surgical History History of bilateral mastectomy History of hysterectomy Family History Family History Father Hypertension Cerebrovascular accident Colon polyp Patient's father is Mother Hypertension Patient's mother is in good health Grandparent Family history of throat cancer Sibling Family history of hepatitis Family history of heart disease in male family member before age 55 Family history of cardiovascular disease Social History Social History Smoking status: Never smoker Second hand tobacco smoke exposure: No Alcohol intake: current Alcohol use details: 2 glasses wine on sundays Substance use: never Substance use type: does not use Lack of Transportation: No Lack of Food: Never True Current Housing: I Have Housing Concerned About Future Housing: No Difficulty Paying Gas/Electric Bills: No Difficulty Paying for Meds: No Currently Unemployed: No Education: High School Diploma/GED Difficulty w/ Childcare or Family Care: No Living arrangements: alone Additional living arrangements comments: S.O. Spiritual care concerns: No Anes - Eval Final PreProcedure Day of Procedure 08/06/22 09:22 Patient weight: normal Heart: regular rate and rhythm Lungs: clear to auscultation Airway: Mallampati scale class II Neurological: alert and oriented Last oral intake: >/= 8 hours ASA classification: III Emergent: no Anesthetic plan: proceed Anesthesia type and monitoring: general GIVS and standard monitoring Results Review: All pre-operative results and documents have been reviewed as part of the pre-operative evaluation. Informed Consent: The patient's anesthetic plan and its attendant risks and benefits were discussed with the patient/family/POA. Questions were solicited and answers provided to the satisfaction of the patient/family/POA.
[2022-08-06 10:03] VITALS: BP 89/50; PULSE 57; RESP 16; O2SAT 100
[2022-08-06 10:13] VITALS: BP 108/62; PULSE 59; RESP 16; O2SAT 100
[2022-08-06 10:23] VITALS: BP 112/64; PULSE 58; RESP 18; O2SAT 100
== END 2022-08-06 10:30 | disposition home or self-care (01) ==
PROVIDERS: PCP Family Medicine; Visit Provider Internal Medicine Gastroenterology
PROC: 0DJD8ZZ Inspection of Lower Intestinal Tract, Via Natural or Artificial Opening Endoscopic (ICD-10-PCS; CPT 45378; principal; 2022-08-06 09:30)
DX: Z12.11 Encounter for screening for malignant neoplasm of colon (principal); K64.8 Other hemorrhoids; Z83.71 Family history of colonic polyps
CPT/HCPCS: G0105; J2704; J7120

== ENCOUNTER 2023-12-10 12:56 | Outpatient (CLI) | payer OTHER, SELFPAY ==
--- NOTE | ~2023-12-10 | MR_ITS ---
EXAMINATION: MR brain/brain stem wo/w con DATE: 12/10/2023 14:08 INDICATION: Headache TECHNIQUE: Magnetic resonance imaging (MRI) of the brain and brainstem was performed without and with 14 mL Multihance intravenous contrast. Sequences included sagittal and axial T1-weighted FSE, axial diffusion-weighted FS EPI, axial T2*-weighted GRE, axial T2-weighted FLAIR Propeller, axial T2-weight ed Propeller, small odccl-cd-bnmv coronal FIESTA, small pcyhy-ag-fgyj coronal T1-weighted FSE, and sm all sbrrm-zy-ukcy axial T1-weighted SPGR. Postcontrast sequences included axial T1-weighted FSE, smal l ujbif-ne-lkee coronal T1-weighted FSE, and small suxbu-cr-snmr axial T1-weighted SPGR. Apparent dif fusion coefficient (ADC) maps were created. COMPARISON: None. FINDINGS: There are no areas of restricted diffusion to suggest acute infarction. No intracranial hemorrhage or abnormal intracranial mass lesion. There are scattered areas of nonspecific increased T2-weighted si gnal intensity in the cerebral white matter, predominantly involving the deep and periventricular whi te matter. There are no intraparenchymal signal abnormalities seen on the other pulse sequences. The ventricles are symmetric and normal in size. There are no abnormal extra-axial fluid collections. Nor mal seventh/eighth cranial nerve complexes. No cerebellopontine angles masses. The left superior cer ebellar artery has a 90 degrees across the medial and cephalad margins of the root zone of the left t rigeminal nerve root suggesting minimal mass effect upon the medial side of the exiting trigeminal ne rve which could predispose towards trigeminal neuralgia. No evidence of mastoid or middle ear fluid. Flow voids are seen in the cerebral arteries on the T2-weighted sequences consistent with their expec randal patency. Changes of bilateral intraocular lens replacement. Visualized orbits and soft tissues ar e unremarkable. There are no areas of abnormal enhancement on the post contrast images. IMPRESSION: 1. Normal aging brain. No acute intracranial process or abnormally enhancing brain lesions. 2. 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 Correlate for clinical history of left-sided trigeminal n euralgia. Reviewed, dictated and finalized at location A. IMPRESSION: 1. Normal aging brain. No acute intracranial process or abnormally enhancing br ain lesions. 2. 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 Correlate for clinical history of left-sided trigeminal neuralgia.
== END 2023-12-10 12:57 | disposition home or self-care (01) ==
LOC: MICIMG 13:00
PROVIDERS: PCP Family Medicine; Visit Provider Physician Assistant Medical
DX: R51.9 Headache, unspecified (principal); G89.29 Other chronic pain; H54.7 Unspecified visual loss; Z86.69 Personal history of other diseases of the nervous system and sense organs
CPT/HCPCS: 70553; A9577

== ENCOUNTER 2025-02-01 13:27 | Outpatient (CLI) | payer OTHER, SELFPAY ==
--- NOTE | ~2025-02-01 | XR_ITS ---
EXAMINATION: XR chest 2V, 02/01/2025 13:45 HUMAN RELATIONS MANAGER HISTORY: R06.2 - Wheezing/COUGH COMPARISON: No comparisons available. Technique: 2 views obtained. Findings: The lungs are clear, no effusion. No pneumothorax. Heart is normal size. Mediastinal and hilar contours are within normal limits. Bony thorax no acute abnormality. Impression: No acute cardiopulmonary abnormality. Reviewed, dictated and finalized at location P. N RELATIONS MANAGER Impression: No acute cardiopulmonary abnormality.
--- OUTSIDE RECORDS SUMMARY | 2025-02-01 14:37 | XMS_ITS | Data Portability ---
Author Organization [facility], Main Office Address [address] [place] [address] Care Team Providers Care Patient Relations Director Name Role Phone SID HOLDER Primary Care Provider [phone] SID HOLDER Referring Provider [phone] Assessment Encounter Date Assessment Date Assessment LastModified by Organization Details LastModified Time 06/22/2022 06/22/2022 HPI: Patient returns. She is here for 1 year follow-up of right anterior total hip arthroplasty. Is doing well. She is having no complaints with her right hip. She has been able be active this last year without any symptoms. Physical exam: Patient is walking well without limp. She has excellent range of motion of the hip without discomfort. No swelling in either lower extremity. Impression: Patient is doing well 1 year out from right anterior total hip arthroplasty. Long-term risk of infection was discussed. At this point we will plan on seeing patient back in 5 years for routine x-ray surveillance or sooner if she has problems. 20 minutes was spent treatment patient this in [id number] conversation [email or web address] Not available 06/22/2022 10:52:33 Plan of Treatment Reminders Order Date Submit Date Provider Last Modified By Organization Details Last Modified Time Details Appointments None recorded. Lab None recorded. Referral None recorded. Procedures None recorded. Surgeries None recorded. Imaging XR, hip + pelvis, unilateral 2022 023 [email or web address] [facility] Reuben Fernandes, [address], [place], [address], 17:31:37 Medication Orders None recorded. Patient TargetsNo targets recorded. Patient InstructionsNo instructions recorded. Reason for Referral None Reported. Results Created Date Observation Date Name Description Value Unit Range Abnormal Flag Note LastModifiedBy Organization Detail LastModifiedTime 01/31/20 21 01/30/2021 XR, hip, unila teral , 1 view No observ ation record ed. [id number] [facility] [address], [place], [address], 04/18/2022 13:34:24 01/31/20 21 01/30/2021 XR, hip, unila teral No observ ation record ed. [id number] [facility] [address], [place], [address], 04/18/2022 13:34:24 02/09/20 21 12/26/2020 elect charlie prasad am No observ ation record ed. [email or web address]. [id number] Not Available 04/18/2022 13:34:24 02/09/20 21 06/19/2018 bone densi ty No observ ation record ed. [email or web address]. [id number] Not Available 04/18/2022 13:34:24 02/27/19 22 XR, hip + pelvi s, unila teral No observ ation record ed. [email or web address]. [id number] [facility] [place] [address], [place], [address], 04/18/2022 13:34:24 06/23/19 23 XR, hip + pelvi s, unila teral No observ ation record ed. [email or web address] [facility] [place] [address], [address], 06/22/2022 10:51:40 Result Notes None recorded. Problems Name Problem SNOMED Code Status Onset Date Resolution Date Notes Provider Name and Address Organization Details Recorded Time Localized, primary osteoarthr itis of the pelvic region and thigh 582857584 Active Not Available [facility] 3 13:31:19 History of total hip arthroplas ty 300674557469 Active 2021 Not Available [facility] 3 13:31:20 Problem Notes None recorded. Procedures Surgical History Date Name Laterality Status Provider Name and Address Organization Details Recorded Time Breast Surgery completed Not Available [facility] 04/18/2022 13:30:14 Hysterectomy completed Not Available [facility] 04/18/2022 13:30:14 Imaging Results None recorded. Procedure Notes None recorded. Medical Equipment None Reported. Allergies Allergen ID Allergen Name Allergen Category Reaction Reaction Severity Criticality Documentation Date Start Date Code Code System Note Provider Name and Address Organization Details Recorded Time 43230 mold extract environme nt Not available Not available Not available 04/18/2022 50836 8 RxNorm Not Available [facility] 3 13:34:16 47164 latex environme nt,medica tion Not available Not available Not available 04/18/2022 61851 91 RxNorm Not Available [facility] 3 13:34:16 04555 house dust allergeni c extract environme nt,medica tion Not available Not available Not available 04/18/2022 28415 9 RxNorm Not Available [facility] 3 13:34:16 Medications Name Sig Start Date Stop Date Status Note LastModified by Organization Details LastModified Time amoxicillin 500 mg capsule TK FOUR CS PO 1 HOUR B DAPP 06/22 completed Not Available Not Available Not Available topiramate 25 mg tablet 10/06 completed Not Available Not Available Not Available acetaminoph en 500 mg tablet TAKE 2 TABLETS BY MOUTH EVERY 6 HOURS 02/27 completed Not Available Not Available Not Available amoxicillin 500 mg tablet TAKE 4 TABLETS BY MOUTH 1 HOUR PRIOR TO APPT active Not Available Not Available No t Available cephalexin 500 mg capsule TAKE 1 CAPSULE BY MOUTH EVERY 6 HOURS 02/27 completed Not Available Not Available Not Available metronidazo le 0.75 % topical cream APPLY TO THE AFFECTED AREA OF FACE EVERY NIGHT AT BEDTIME active Not Available Not Available No t Available mupirocin 2 % topical ointment Applied as directed in both nostrils twice daily for 5 days starting 12-8-21-w ith use of hibiclens daily active Not Available Not Available No t Available celecoxib 100 mg capsule TAKE 1 CAPSULE BY MOUTH DAILY 02/27 completed Not Available Not Available Not Available oxycodone 5 mg tablet TAKE 1 TABLET BY MOUTH EVERY 4 HOURS 02/27 completed Not Available Not Available Not Available Boostrix Tdap 2.5 Lf unit-8 mcg-5 Lf/0.5 mL intramuscul ar syringe active Not Available Not Available N ot Available ProAir HFA 90 mcg/actuati on aerosol inhaler 10/06 completed Not Available Not Available Not Available Prevnar 13 (PF) 0.5 mL intramuscul ar syringe active Not Available Not Available N ot Available SmoothLax 17 gram oral powder packet MIX 1 PACKET IN LIQUID AND DRINK EVERY MORNING 02/27 completed Not Available Not Available Not Available Vitamin D3 50 mcg (2,000 unit) capsule TK ONE C PO D 02/13 completed Not Available Not Available Not Available Eliquis 2.5 mg tablet TAKE 1 TABLET BY MOUTH EVERY 12 HOURS 03/13 completed Not Available Not Available Not Available Stimulant Laxative Plus 8.6 mg-50 mg tablet TAKE 2 TABLETS BY MOUTH TWICE DAILY 03/13 completed Not Available Not Available Not Available Fluad 2018- 65yr up(PF)45 mcg(15 mcgx3)/0.5 mL intramuscul ar syringe ADM 0.5ML IM UTD active Not Available Not Available No t Available Vitals Date Recorded Body height Provider Name an d Address Organization Details Last Updated DateTime 02/27/2021 165.1 cm Not Available [facility] 3 13:30:32 Date Recorded Body height Provider Name an d Address Organization Details Last Updated DateTime 03/13/2021 165.1 cm Not Available [facility] 3 13:30:32 Date Recorded Body height Provider Name an d Address Organization Details Last Updated DateTime 2021 165.1 cm Not Available [facility] 3 13:30:32 Date Recorded Body height Body mass index (BMI) Body weight Provider Name and Address Organization Details Last Updated DateTime 06/22/2022 165.1 cm 25.5 kg/m2 82935.63 g MARQUIS Grace Elijah [place] [facility] [employer] [facility] 06/22/2022 10:23:02 Date Recorded Body height Provider Name an d Address Organization Details Last Updated DateTime 02/13/2021 165.1 cm Not Available [facility] 3 13:30:31 Social History None recorded. Functional Status Question Answer Note LastModified by Organizat ion Details LastModified Time What is your level of alcohol consumption? Occasional [id number] Information not available 04/18/2022 Mental Status None recorded. Family History Relationship Description Onset Age of this Age Resolved Age Notes LastModified by Organization Details LastModified Time Mother Heart disease [id number] Not available 04/18/2022 13:30:17 Father Family history of stroke [id number] Not available 04/18/2022 13:30:17 Father Hypertensive disorder [id number] Not available 04/18/2022 13:30:17 Medical History Condition Response BLINDNESS N KIDNEY STONES N MRSA N CARPAL TUNNEL SYNDROME N LUNG DISEASE/DISORDER N HISTORY OF DRUG ABUSE N COPD N RADIATION / CHEMOTHERAPY N SPORTS INJURY N ANKLE PAIN N BLOOD DISEASES N SCHIZOPHRENIA N SHINGLES N SHOULDER PAIN N DEPRESSION (INCLUDING POST ) N BOWEL PROBLEMS N STROKE/TIA N ULCERS N KNEE PAIN N BENIGN PROSTATIC HYPERPLASIA N OBESITY N GERD/NAUSEA N ANEURYSM N URINARY/BLADDER/KIDNEY PROBLEMS N CORONARY ARTERY DISEASE (CAD) N ADDICTION CONCERNS N USE OF BLOOD THINNERS N SKIN PROBLEMS N EMPHYSEMA N MUSCLE,JOINT OR BONE PROBLEMS N DVT N STOMACH ULCERS N BLOOD CLOTS N USE OF NSAIDS N CONCUSSION OR SPINAL TRAUMA N NEUROPATHY N AIDS/HIV N FRACTURES N HYPERTENSION N ELBOW PAIN N TOURETTE'S N Metal allergy N ANXIETY DISORDER N BLOOD TRANSFUSION N ANEMIA/BLOOD DISORDER N BIPOLAR DISORDER N BRONCHITIS N OSTEOARTHRITIS N TUBERCULOSIS N FOOT PROBLEM N HEART VALVE DISORDERS N ALLERGIES/HAYFEVER N SOFT TISSUE INJURY N INFECTIOUS DISEASE N HEART ARRHYTHMIA N INSOMNIA N HIGH CHOLESTEROL / HYPERLIPIDEMIA N RHEUMATOID ARTHRITIS N EDEMA N CHRONIC PAIN SYNDROME N CAROTID BLOCKAGE N BACK / NECK PROBLEMS N HAVE YOU BEEN HOSPITALIZED OR SEEN IN [facility] IN THE PAST YEAR ? N BURSITIS N HERNIATED DISC N DIALYSIS N FIBROMYALGIA N OSTEOPOROSIS Y ARTHRITIS Y NO SIGNIFICANT PAST MEDICAL HISTORY N PERIPHERAL NEUROPATHY N DIABETES, TYPE N HEARTBURN / REFLUX N HEPATITIS / LIVER DISEASE N GOUT N ALZHEIMER'S DISEASE N SLEEP DISORDER N HERPES N HEADACHES/MIGRAINES N SEIZURES/EPILEPSY N VASCULAR DISEASE N Blood Disorder N HIP PAIN N DIZZINESS N HEAD TRAUMA OR INJURY N HEART DISEASE/HEART PROBLEMS N MULTIPLE SCLEROSIS N CANCER: SPECIFY Y CARDIAC ARRHYTHMIA N ANESTHESIA COMPLICATIONS N ATRIAL FIBRILLATION N AUTOIMMUNE DISEASE N Gynecological HistoryNo gynecological history recorded. Obstetrics History GPAL:G 0 P 0 0 0 0 Past Encounters Encounter ID Performer Location Encounter Start Date Encounter Closed Date Diagnosis/Indication Diagnosis SNOMED-CT Code Diagnosis ICD10 Code Diagnosis IMO Codes Diagnosis Note [id number] Oswald Doherty MD [facility] [place] [address] [place], [place] [address] 11/25/2020 00:00:00 11/26/2020 14:16:28 [id number] Oswald Doherty MD [facility] [place] [address] [place], [place] [address] 02/13/2021 00:00:00 02/13/2021 17:29:47 [id number] Oswald Doherty MD [facility] [place] [address] [place], [place] [address] 02/27/2021 00:00:00 02/27/2021 15:38:46 [id number] Oswald Doherty MD [facility] [place] [address] [place], [place] [address] 03/13/2021 00:00:00 03/13/2021 14:46:43 [id number] Oswald Doherty MD [facility] [place] [address] [place], [place] [address] 2021 00:00:00 2021 15:18:25 [id number] Oswald Doherty MD [facility] [place] [address] [place], [place] [address] 06/22/2022 09:56:49 06/22/2022 10:54:14 History of total replacement of right hip joint [id number] 01933 Z96.641 Health Concerns Section Related Observation LastModified by Organization Detai ls LastModified Time None Recorded Concern Status LastModified by Organization Details LastModified Time None Recorded Advance Directives Directive None Recorded Payers Insurance Date Sequence Insurance Name Policy Number Policy Burden Covered Member ID Burden Member ID Guarantor Name 06/26/2022 1 [facility] (MEDICARE REPLACEMENT HMO) [id number] Nallely Jensen [id number] Nallely Jensen OBGyn Episode No OBEpisode recorded.
--- OUTSIDE RECORDS SUMMARY | 2025-02-01 14:37 | XMS_ITS | Clinical Summary ---
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 Gender Identity Not on file Sexual Orientation Not on file Plan of Treatment Health Maintenance Due Date Last Done Comments Hepatitis C 1963 DTaP, Tdap and Td Vaccines ( 1 - Tdap) 1966 Pneumococcal Vaccine: 50+ Ye ars (1 of 1 - PCV) 1997 Zoster Vaccines (1 of 2) 1997 Dexa Scan (General) 2012 RSV Immunization or 60+ Years (1 - 1-dose 75+ series) 2022 COVID-19 Vaccine (2024-2 6 season) 2024 Influenza Adult (#1) 2024 Hepatitis A Vaccines Aged Out No long er eligible based on patient's age to complete this topic Meningococcal B Vaccine Aged Out No l onger eligible based on patient's age to complete this topic Meningococcal Vaccine Aged Out No travis chuck eligible based on patient's age to complete this topic RSV Immunizations Under 20 Months Aged Out No longer eligible based on patient's age to complete this topic
== END 2025-02-01 13:28 | disposition home or self-care (01) ==
PROVIDERS: PCP Family Medicine; Visit Provider Nurse Practitioner Family
DX: R06.2 Wheezing (principal); R05.9 Cough, unspecified
CPT/HCPCS: 71046